=== PATIENT | male | born 1985 | race Caucasian/White ===

== ENCOUNTER 2025-07-22 09:49 | Outpatient (REF) | payer MEDICAID, SELFPAY ==
--- OUTSIDE RECORDS SUMMARY | 2025-07-22 09:15 | XMS_ITS | Encounter Summary ---
Author Organization [facility] Address [address] 7t [place] [address] Care Team Providers Care Medical Stenographer Name Role Phone Unavailable Primary Care Provider Unavailabl e Reason for Referral * Consultation (Routine) - Canceled Specialty Diagnoses / Procedures Referred By Contpipe t Referred To Contact Ophthalmology Diagnoses Elevated blood pressure reading Ros Schuster MD [address] [place] [phone] Phone: tel: fax: Referral ID Status Reason Start Date Expiration Date Visits Requested Visits Authorized [id number] Canceled Specialty Services Required 07/22/2025 07/22/2026 1 1 Reason for Visit * Reason Comments Establish Care Encounter Details Date Type Department Care Team (Late st Contact Info) Description 07/22/2025 9:15 AM EDT Office Visit [facility] MEDICINE [address] [place] [phone] Ros Schuster MD [address] [place] [phone] Elevated blood pressure reading (Primary Dx); Preventative health care Social History Tobacco Use Types Packs/Day Years Used Date Smoking Tobacco: Never Smokeless Tobacco: Never Tobacco Cessation:Counseling Given: Not Answered Alcohol Use Standard Drinks/Week Comments Never 0 (1 standard drink = 0.6 oz pur e alcohol) Depression Answer Date Recorded Patient Health Questionnaire-9 Score 0 07/22/2025 Patient Health Questionnaire-9 Score 0 07/22/2025 Last PHQ-9: Questionnaire Data Not on file 0 07/22/2025 Housing Stability Answer Date Recorded What is your housing situation today? I have sheldon danielson 07/22/[address] you li ve. Do you have problems with any of the following? None of the above 07/22/2025 Food Insecurity Answer Date Recorded Within the past 12 months, y ou worried that your food would run out before you got money to buy more: Never True 07/22/2025 Within the past 12 months,th e food you bought just didn't last and you didn't have enough money to get more: Never True Transportation Answer Date Recorded In the past 12 months, has l ack of transportation kept you from medical appts, meetings, work or from getting things needed for daily living? No 07/22/2025 Utilities Answer Date Recorded In the past 12 months, has t he electric, gas, oil or water company threatened to shut off services in your home? No 07/22/2025 Depression Answer Date Recorded Patient Health Questionnaire-2 Score 0 07/22/2025 Internet Access Answer Date Recorded Internet Access Q1 Yes 07/22/2025 Internet Access Q2 Not on file 07/22/2025 Comments Unknown Sex and Gender Information Value Date Recorded Sex Assigned at Unknown 07/21/2025 10:56 AM EDT Legal Sex Male 1:14 PM EST Gender Identity Choose not to disclose 10:56 AM EDT Sexual Orientation Don't know 07/21/2025 10 :56 AM EDT documented as of this encounter Last Filed Vital Signs Vital Sign Reading Time Taken Comments Blood Pressure 132/82 07/22/2025 9:15 AM EDT Pulse 72 07/22/2025 9:01 AM EDT Temperature 36.1 C (97 F) 07/22/2025 9:01 AM EDT Respiratory Rate 20 07/22/2025 9:01 AM EDT Oxygen Saturation - - Inhaled Oxygen Concentration - - Weight 85.2 kg (187 lb 12.8 oz) 07/22/2025 9:01 AM EDT Height 165.1 cm (5' 5 ) 07/22/2025 9:01 AM EDT Body Mass Index 31.25 07/22/2025 9:01 AM EDT documented in this encounter Functional Status * Over the past 2 weeks, how often have you been bothered by any of the following problems? Question Answer Date of Assessment Author Patient Health Questionnaire-2 Score 0 07/22/2025 9:03 AM Jamaica Agosto MA * Little interest or pleasure in doing things Answer Date of Assessment Author Not at all 07/22/2025 9:03 AM Jamaica Mitchell MA * Feeling down, depressed, or hopeless Answer Date of Assessment Author Not at all 07/22/2025 9:03 AM Jamaica Mitchell MA * Trouble falling or staying asleep, or sleeping too much Answer Date of Assessment Author Not at all 07/22/2025 9:03 AM Jamaica Mitchell MA * Feeling tired or having little energy Answer Date of Assessment Author Not at all 07/22/2025 9:03 AM Jamaica Mitchell MA * Poor appetite or overeating Answer Date of Assessment Author Not at all 07/22/2025 9:03 AM Jamaica Mitchell MA * Feeling bad about yourself - or that you are a failure or have let yourself or your family down Answer Date of Assessment Author Not at all 07/22/2025 9:03 AM Jamaica Mitchell MA * Trouble concentrating on things, such as reading the newspaper or watching television Answer Date of Assessment Author Not at all 07/22/2025 9:03 AM Jamaica Mitchell MA * Moving or speaking so slowly that other people could have noticed? Or the opposite - being so fidgety or restless that you have been moving around a lot more than usual. Answer Date of Assessment Author Not at all 07/22/2025 9:03 AM Jamaica Mitchell MA * Thoughts that you would be better off or hurting yourself in some way Answer Date of Assessment Author Not at all 07/22/2025 9:03 AM Jamaica Mitchell MA * Patient Health Questionnaire-9 Score Answer Date of Assessment Author 0 07/22/2025 9:03 AM Jamaica Mitchell MA * Over the last 2 weeks, how often have you been bothered by any of the following problems? Question Answer Date of Assessment Author Feeling nervous, anxious, or on edge 0 07/22/2025 9:04 AM EDT Jamaica Torres MA Not being able to stop or control worrying 0 07/22/2025 9:04 AM EDT Jamaica Torres MA Worrying too much about different things 0 07/22/2025 9:04 AM EDT Jamaica Torres MA Trouble relaxing 0 07/22/2025 9:04 AM EDT Jamaica Fagan MA Being so restless that it is hard to sit still 0 07/22/2025 9:04 AM EDT Jamaica Torres MA Becoming easily annoyed or irritable 0 07/22/2025 9:04 AM EDT Jamaica Torres MA Feeling afraid as if something awful might happen 0 07/22/2025 9:04 AM EDT Jamaica Ibrahim MA MIREYA-7 Total Score 0 07/22/2025 9:04 AM EDT Jamaica Torres MA documented as of this encounter Miscellaneous Notes * Assessment & Plan Note - Ros Schuster MD - 07/22/2025 9:48 AM EDT Associated Problem(s): Preventative health care Check immunization status, hep B and MMR. Check STI testing and cardiovascular risk due to family history of early CAD Will refer to eye clinic evaluation and I advised to make an appointment with his dentist FU in 4-6w * Assessment & Plan Note - Ros Schuster MD - 07/22/2025 9:46 AM EDT Associated Problem(s): Elevated blood pressure reading Repeated BP is normal. Counseled re low salt diet/increase moderate physical activity. Will check BP at home at next visit, if it continues to be elevated then we will order home BP check. Non smoking patient. documented in this encounter Plan of Treatment Upcoming Encounters Date Type Department Care Team (Late st Contact Info) Description 10/01/2025 11:15 AM EST Office Visit [facility] MEDICINE [address] [place] [address] Ros Schuster MD [address] [place], [place] [phone] Scheduled Orders Name Type Priority Associated Diagnoses Orde r Schedule Comprehensive Metabolic Panel Lab Routine Elevated blood pressure reading Expected: 07/22/2025 (Approximate), Expires: 07/22/2026 Lipid Panel with Reflex to Direct LDL Lab Routine Elevated blood pressure reading Expected: 07/22/2025 (Approximate), Expires: 07/22/2026 TSH with Reflex to Free T4 Lab Routine Elevated blood pressure reading Expected: 07/22/2025 (Approximate), Expires: 07/22/2026 T-SPOT .TB Lab Routine Preventative health care Expected: 07/22/2025 (Approximate), Expires: 07/22/2026 Hepatitis Panel, General Lab Routine Preventative health care Expected: 07/22/2025 (Approximate), Expires: 07/22/2026 HIV-1/2 Antigen and Antibodies, Fourth Generation, with Reflexes Lab Routine Preventative health care Expected: 07/22/2025 (Approximate), Expires: 07/22/2026 Measles, Mumps, and Rubella (MMR) Antibodies (IgG) Panel, Immune Status Lab Routine Preventative health care Expected: 07/22/2025 (Approximate), Expires: 07/22/2026 Scheduled Referrals Name Type Priority Associated Diagnoses Order Schedule Referral to Ophthalmology Outpatient Referral Routine Elevated blood pressure reading Expected: 07/22/2025 (Approximate), Expires: 07/22/2026 documented as of this encounter Procedures Procedure Name Priority Date/Time Associated Diagnosis Comments CBC WITH AUTO DIFFERENTIAL Routine 07/22/2025 10:14 AM EDT Elevated blood pressure reading documented in this encounter Results * CBC auto differential (07/22/2025 10:14 AM EDT) White Blood Count 5.7 4.8 - 10.8 X10*3/uL [facility] Red Blood Count 5.28 4.60 - 5.80 X10*6/uL [facility] Hemoglobin 14.9 14.0 - 18.0 g/dl [facility] Hematocrit 44.6 42.0 - 52.0 % [facility] Mean Corpuscular Volume 84.5 80.0 - 98.0 fL [facility] Mean Corpuscular Hemoglobin 28.2 27.0 - 33.0 pg [facility] Mean Corpuscular HGB Conc 33.4 31.0 - 36.0 g/dl [facility] Red Cell Distribution Width 12.8 11.0 - 16.0 % [facility] Platelet Count 238 160 - 400 X10*3/uL [facility] Mean Platelet Volume 11.7 9.4 - 12.4 fL [facility] Neutrophils Percent Auto 60.5 45 - 73 % [facility] Imm Gran Pct Auto 0.3 0.0 - 0.4 % [facility] Lymphocytes Percent Auto 29.7 20 - 40 % [facility] Monocytes Percent Auto 7.0 2 - 11 % [facility] Eosinophils Percent Auto 1.6 0 - 4 % [facility] Basophils Percent Auto 0.9 0 - 2 % [facility] NRBC Pct Auto 0.0 0.0 - 0.2 /100WBC [facility] Neutrophils Absolute Auto 3.5 2.0 - 8.3 x10*3/uL [facility] Imm Gran Abs Auto 0.02 0.00 - 0.03 X10*3/uL [facility] Lymphocytes Absolute Auto 1.7 1.2 - 4.9 X10*3/uL [facility] Monocytes Absolute Auto 0.4 0.1 - 1.2 X10*3/uL [facility] Eosinophils Absolute Auto 0.1 0.0 - 0.4 X10*3/uL [facility] Basophils Absolute Auto 0.1 0.0 - 0.2 X10*3/uL [facility] NRBC Abs Auto 0.000 0.0 - 0.012 X10*3/uL [facility] Blood Venous blood specimen / Unknown 07/22/2025 10:14 AM EDT 07/22/2025 11:26 AM EDT us Ros Schuster MD LAB BLOOD ORDERABLES Fin al Result [facility] [address] [place] [phone] documented in this encounter Visit Diagnoses Diagnosis Elevated blood pressure reading- Primary Elevated blood pressure reading without diagnosis of hypertension Preventative health care Routine general medical examination at a health care facility documented in this encounter Additional Health Concerns Assessment Noted Time PHQ-9 Depression Total Score: 0 07/22/20 25 9:03 AM EDT documented as of this encounter
[2025-07-22 11:35] LABS: MANUAL DIFF FLAG NO
[2025-07-22 11:40] LABS: Hematocrit 44.6 % (42.0-52.0); Hemoglobin 14.9 g/dl (14.0-18.0); Imm Gran Abs Auto 0.02 X10*3/uL (0.00-0.03); Imm Gran Pct Auto 0.3 % (0.0-0.4); Lymphocytes Absolute Auto 1.7 X10*3/uL (1.2-4.9); Mean Corpuscular HGB Conc 33.4 g/dl (31.0-36.0); Mean Corpuscular Hemoglobin 28.2 pg (27.0-33.0); Mean Corpuscular Volume 84.5 fL (80.0-98.0); NRBC Abs Auto 0.000 X10*3/uL (0.0-0.012); NRBC Pct Auto 0.0 /100WBC (0.0-0.2); Platelet Count 238 X10*3/uL (160-400); Red Blood Count 5.28 X10*6/uL (4.60-5.80); White Blood Count 5.7 X10*3/uL (4.8-10.8)
--- OUTSIDE RECORDS SUMMARY | 2025-07-22 11:52 | XMS_ITS | Clinical Summary ---
Author Organization [employer] Address [address] 7t [place] [address] Care Team Providers Care Emergency Crew Supervisor Name Role Phone Unavailable Primary Care Provider Unavailabl e Allergies No known active allergies Active Problems Problem Noted Date Diagnosed Date Elevated blood pressure reading 07/22/2025 Assessment & Plan (07/22/2025 9:46 AM EDT): Repeated BP is normal. Counseled re low salt diet/increase moderate physical activity. Will check BP at home at next visit, if it continues to be elevated then we will order home BP check. Non smoking patient. Preventative health care 07/22/2025 Assessment & Plan (07/22/2025 9:49 AM EDT): Check immunization status, hep B and MMR. Check STI testing and cardiovascular risk due to family history of early CAD Will refer to eye clinic evaluation and I advised to make an appointment with his dentist FU in 4-6w Encounters Date Type Department Care Team Description 07/22/2025 9:15 AM EDT Office Visit [facility] MEDICINE [address] [place] [phone] Ros Schuster MD Elevated blood pressure reading (Primary Dx); Preventative health care 07/22/2025 Travel 07/18/[address] [address] Ros Schuster MD Chart prep 07/16/2025 Travel 07/14/2025 Patient Outreach [address] [phone] Ros Schuster MD Pre-visit Planning ((Unable to reach for PVP screening and or LVM) to be completed in office) 04/28/[address] [phone] Rahul José MD from Last 3 Months Social History Tobacco Use Types Packs/Day Years [...] Don't know 07/21/2025 10 :56 AM EDT Last Filed Vital Signs Vital Sign Reading [...] Mass Index 31.25 07/22/2025 9:01 AM EDT Plan of Treatment Upcoming Encounters Date Type Department Care Team (Late st Contact Info) Description 10/01/2025 11:15 AM EST Office Visit [facility] MEDICINE [address] [place] [address] Ros Schuster MD [address] [place], [place] [phone] Health Maintenance Due Date Last Done Comments HIV Screening 1983 Lipid Panel 1983 Family Planning (PISQ) 1998 HPV Vaccines (1 - 3-dose series) 1998 Hepatitis C Screening 2001 DTaP/Tdap/Td Vaccines (1 - Tdap) 2002 Hepatitis B Vaccines (1 of 3 - 19+ 3-dose series) 2002 COVID-19 Vaccine ( - 2023-2 5 season) 2025 Influenza Vaccine (#1) 2025 Alcohol/Substance Use Screening 07/22/2026 07/22/2025 Depression Screening 07/22/2026 07/22/2025, 07/22/2025 Disability Screening 07/22/2026 07/22/2025 SDOH Screening 07/22/2026 07/22/2025 Tobacco Screening 07/22/2026 07/22/2025 Zoster Vaccines (1 of 2) 2033 RSV Patients and Patients Aged 60 years or older (1 - 1-dose 75+ series) 2058 HIB Vaccines Aged Out No longer eligi ble based on patient's age to complete this topic Hepatitis A Vaccines Aged Out No long er eligible based on patient's age to complete this topic IPV Vaccines Aged Out No longer eligi ble based on patient's age to complete this topic Meningococcal B Vaccine Aged Out No l onger eligible based on patient's age to complete this topic Meningococcal Vaccine Aged Out No nicholas roselia eligible based on patient's age to complete this topic Pneumococcal Vaccine: Pediatrics (0 to 5 Years) and At-Risk Patients (6 to 49) Years Aged Out No longer eligible b ased on patient's age to complete this topic RSV under 20 months Aged Out No longe r eligible based on patient's age to complete this topic Rotavirus Vaccines Aged Out No longer eligible based on patient's age to complete this topic Procedures Procedure Name Priority Date/Time Associated Diagnosis Comments CBC WITH AUTO DIFFERENTIAL Routine 07/22/2025 10:14 AM EDT Elevated blood pressure reading from Last 3 Months Results * CBC auto differential (07/22/2025 10:14 AM EDT) White Blood Count 5.7 4.8 - 10.8 X10*3/uL [facility] Red Blood Count 5.28 4.60 - 5.80 X10*6/uL [facility] Hemoglobin 14.9 14.0 - 18.0 g/dl [facility] Hematocrit 44.6 42.0 - 52.0 % [facility] Mean Corpuscular Volume 84.5 80.0 - 98.0 fL [facility] Mean Corpuscular Hemoglobin 28.2 27.0 - 33.0 pg [facility] Mean Corpuscular HGB Conc 33.4 31.0 - 36.0 g/dl [facility] Red Cell Distribution Width 12.8 11.0 - 16.0 % [facility] Platelet Count 238 160 - 400 X10*3/uL [facility] Mean Platelet Volume 11.7 9.4 - 12.4 fL [facility] Neutrophils Percent Auto 60.5 45 - 73 % [facility] Imm Gran Pct Auto 0.3 0.0 - 0.4 % [facility] Lymphocytes Percent Auto 29.7 20 - 40 % [facility] Monocytes Percent Auto 7.0 2 - 11 % [facility] Eosinophils Percent Auto 1.6 0 - 4 % [facility] Basophils Percent Auto 0.9 0 - 2 % [facility] NRBC Pct Auto 0.0 0.0 - 0.2 /100WBC [facility] Neutrophils Absolute Auto 3.5 2.0 - 8.3 x10*3/uL [facility] Imm Gran Abs Auto 0.02 0.00 - 0.03 X10*3/uL [facility] Lymphocytes Absolute Auto 1.7 1.2 - 4.9 X10*3/uL [facility] Monocytes Absolute Auto 0.4 0.1 - 1.2 X10*3/uL [facility] Eosinophils Absolute Auto 0.1 0.0 - 0.4 X10*3/uL [facility] Basophils Absolute Auto 0.1 0.0 - 0.2 X10*3/uL [facility] NRBC Abs Auto 0.000 0.0 - 0.012 X10*3/uL [facility] Blood Venous blood specimen / Unknown 07/22/2025 10:14 AM EDT 07/22/2025 11:26 AM EDT us Ros Schuster MD LAB BLOOD ORDERABLES Fin al Result [facility] [address] [place] [address] [phone] from Last 3 Months Insurance [facility] [employer]SN FULL
--- OUTSIDE RECORDS SUMMARY | 2025-07-22 11:52 | XMS_ITS | Encounter Summary ---
Author Organization [employer] Address [address] [place] [address] Care Team Providers Care Filing And Polishing Supervisor Name Role Phone Unavailable Primary Care Provider Unavailabl e Encounter Details Date Type Department Care Team (Latest Contact Info) Description 07/22/2025 Travel Social History Tobacco Use Types Packs/Day Years Used Date Smoking Tobacco: Never Smokeless Tobacco: Never Alcohol Use Standard Drinks/Week Comments Never 0 [...] AM EDT documented as of this encounter Functional Status * Over the past 2 weeks, how often have you been bothered by any of the following problems? Question Answer Date of Assessment Author Patient Health Questionnaire-2 Score 0 07/22/2025 9:03 AM EDT Jamaica Torres MA * Little interest or pleasure in doing things Answer Date of Assessment Author Not at all 07/22/2025 9:03 AM EDT Jamaica Key MA * Feeling down, depressed, or hopeless [...] Author Not at all 07/22/2025 9:03 AM EDT Jamaica Key MA * Patient Health Questionnaire-9 Score Answer Date of Assessment Author 0 07/22/2025 9:03 AM EDT Jamaica Key MA * Over the last 2 weeks, [...] Torres MA documented as of this encounter Plan of Treatment Upcoming Encounters Date Type Department Care Team (Late st Contact Info) Description 10/01/2025 11:15 AM EST Office Visit [facility] MEDICINE [address] [place] [address] Ros Schuster MD [address] [place] [address] documented as of this encounter Visit Diagnoses Not on filedocumented in this encounter Additional Health Concerns Assessment Noted Time PHQ-9 Depression Total Score: 0 07/22/20 25 9:03 AM EDT documented as of this encounter
--- OUTSIDE RECORDS SUMMARY | 2025-07-22 11:52 | XMS_ITS | Encounter Summary ---
Author Organization [facility] Address [address] 7t [place] [address] Care Team Providers Care Air Intercept Controller Supervisor Name Role Phone Unavailable Primary Care Provider Unavailabl e Reason for Visit * Reason Onset Date Comments Chart prep 07/18/2025 Encounter Details Date Type Department Care Team (Late st Contact Info) Description 07/18/2025 Telephone [facility] MEDICINE [address] [place] [address] [phone] Ros Schuster MD [address] [place], [place] [phone] Chart prep Social History Tobacco Use Types Packs/Day Years Used Date Smoking Tobacco: Never Assessed Comments Unknown Sex and Gender Information Value Date Recorded Sex Assigned at Unknown 07/21/2025 10:56 AM EDT Legal Sex Male 1:14 PM EST Gender Identity Choose not to disclose 10:56 AM EDT Sexual Orientation Don't know 07/21/2025 10 :56 AM EDT documented as of this encounter Miscellaneous Notes * Telephone Encounter - Nyasia Tate MA - 07/18/2025 3:42 PM EDT Chart Prep Labs: not applicable Images: not applicable Referrals: not applicable Vaccines due: Covid, Flu, Tdap, Hep B, and HPV Screenings: STI screening Overdue care gaps: SBIRT, SDOH, PHQ-9, Disability screen, and Tobacco documented in this encounter Plan of Treatment Upcoming Encounters Date Type Department Care Team (Late st Contact Info) Description 10/01/2025 11:15 AM EST Office Visit [facility] MEDICINE [address] [place] [address] [phone] Ros Schuster MD [address] [place] [address], [place] [address] documented as of this encounter Visit Diagnoses Not on filedocumented in this encounter
[2025-07-22 13:26] LABS: Anion Gap 10 (12-20)
[2025-07-22 13:30] LABS: Alanine Aminotransferase 14 U/L (0-40); Albumin Level 4.6 g/dL (3.5-5.0); Alkaline Phosphatase 69 U/L (39-117); Aspartate Amino Transferase 25 U/L (5-37); Blood Urea Nitrogen 18 mg/dL (9-16); Calcium 9.4 mg/dL (8.4-10.2); Carbon Dioxide 29 mmol/L (22-29); Chloride 109 mmol/L (96-108); Cholesterol 129 mg/dL (<200); Estimated Glomerular Filt Rate > 60; HDL Cholesterol 34 mg/dL (>40); Potassium 4.1 mmol/L (3.3-5.1); Sodium 144 mmol/L (135-145); Total Protein 7.6 g/dL (6.5-8.0); Triglycerides 104 mg/dL (<150)
[2025-07-22 14:10] LABS: HBS Num1 2.38 mIU/mL (0-7.99); HBc Num1 0.07 S/CO (0.00-0.79); HBsAGNum1 0.41 S/CO (0.00-0.99); HIV Num 1 0.05 S/CO (0.00-0.99); Hepatitis A Antibody IgM 0.22 Index (0-0.79); Hepatitis B Surface Antigen Negative (Negative); ~HepC Num1 0.07 S/CO (0.00-0.79); ~Hepatitis A Antibody IgM Nonreactive (Nonreactive); ~Hepatitis B Surface Antibody NONREACTIVE (Nonreactive); ~Hepatitis C Antibody Nonreactive (Nonreactive)
[2025-07-22 14:24] LABS: Reflex LDLD? No
[2025-07-23 09:34] LABS: Rubeola IgG (Measles) 297.00 AU/mL
[2025-07-25 05:43] LABS: TS Negative Control Passed; TS Panel A 24; TS Panel B 30; TS Positive Control Passed; TSpotTB Positive (Negative)
== END 2025-07-22 09:50 | disposition home or self-care (01) ==
LOC: HO.HHCL 09:49
PROVIDERS: PCP Internal Medicine; Visit Provider Internal Medicine
DX: Z00.00 Encounter for general adult medical examination without abnormal findings (principal); R03.0 Elevated blood-pressure reading, without diagnosis of hypertension; Z11.59 Encounter for screening for other viral diseases; Z11.4 Encounter for screening for human immunodeficiency virus [HIV]
CPT/HCPCS: 36415; 80053; 80061; 84443; 85025; 86481; 86704; 86706; 86709; 86735; 86762; 86765; 86803; 87340; 87389

== ENCOUNTER 2025-10-01 13:26 | Outpatient (REF) | payer MEDICAID, SELFPAY ==
--- NOTE | ~2025-10-01 | XR_ITS ---
EXAMINATION: XR CHEST CLINICAL INFORMATION: TB COMPARISON: None available. TECHNIQUE: 2 views of the chest were obtained. FINDINGS: No significant abnormality is noted involving the heart, lungs, mediastinum, bony thorax or soft tissues. XR/XR chest 2V IMPRESSION: No acute disease, no sequela of chronic granulomatous disease. Electronically signed by: He Roche MD 10/01/2025 02:29 PM EST
--- OUTSIDE RECORDS SUMMARY | 2025-10-01 11:15 | XMS_ITS | Encounter Summary ---
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 0 10/01/2025 Depression Answer Date Recorded Patient Health Questionnaire-9 Score 0 07/22/2025 Patient Health Questionnaire-9 Score 0 07/22/2025 Last PHQ-9: Questionnaire Data Not on file 0 07/22/2025 Housing Stability Answer Date Recorded What is your housing situation today? I have sheldon jagjit 07/22/[address] you li [...] Sign Reading Time Taken Comments Blood Pressure 140/82 10/01/2025 11:29 AM EST Pulse 80 10/01/2025 11:29 AM EST Temperature 36.1 C (97 F) 10/01/2025 11:29 AM EST Respiratory Rate 16 10/01/2025 11:29 AM EST Oxygen Saturation 99% 10/01/2025 11:29 AM EST Inhaled Oxygen Concentration - - Weight 83 kg (183 lb) 10/01/2025 11:29 AM EST Height 160 cm (5' 3 ) 10/01/2025 11:29 AM EST Body Mass Index 32.42 10/01/2025 11:29 AM EST documented in this encounter Plan of Treatment Not on file documented as of this encounter Visit Diagnoses Diagnosis Positive QuantiFERON-TB Gold test- Primary Elevated blood pressure reading Elevated blood pressure reading without diagnosis of hypertension Encounter for immunization documented in this encounter Additional Health Concerns Assessment Noted Time PHQ-9 Depression Total Score: 0 07/22/20 9:03 AM EDT documented as of this encounter Care Teams Imcu Specialist Relationship Specialty Start Date End Date Ros Schuster MD [address] [place] [phone] PCP - General Internal Medicine 10/01/25 documented as of this encounter
--- OUTSIDE RECORDS SUMMARY | 2025-10-01 16:00 | XMS_ITS | Encounter Summary ---
Author Organization [employer] Address [address] [place] [address] Care Team Providers Care Tightener Name Role Phone Ros Schuster MD Primary Care Provider + Encounter Details Date Type Department Care Team (Latest Contact Info) Description 10/01/2025 Travel Social History Tobacco Use Types Packs/Day [...] is your housing situation today? I have sheldonjulio danielson 07/22/[address] you [...] AM EDT documented as of this encounter Plan of Treatment Not on file documented as of this encounter Visit Diagnoses Not on filedocumented in this encounter Additional Health Concerns Assessment Noted Time PHQ-9 Depression Total Score: 0 07/22/20 9:03 AM EDT documented as of this encounter Care Teams Tightener Relationship Specialty Start Date End Date Ros Schuster MD [address] [place] [phone] PCP - General Internal Medicine 10/01/25 documented as of this encounter
--- OUTSIDE RECORDS SUMMARY | 2025-10-01 16:00 | XMS_ITS | Encounter Summary ---
Author Organization [employer] Address [address] [place] [address] Care Team Providers Care Business Integration Analyst Name Role Phone Unavailable Primary Care Provider Unavailabl e Encounter Details Date Type Department Care Team (Latest Contact Info) Description 09/28/2025 Travel Social History Tobacco Use Types Packs/Day [...]
--- OUTSIDE RECORDS SUMMARY | 2025-10-01 16:00 | XMS_ITS | Clinical Summary ---
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 Elevated blood pressure reading 07/22/2025 Assessment & [...] Encounters Date Type Department Care Team Description 10/01/2025 11:15 AM EST Office Visit [facility] [address] [place] [phone] Ros Schuster MD 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); Elevated blood pressure reading; Encounter for immunization 10/01/2025 Travel 09/28/2025 Travel 09/17/2025 Patient Outreach [facility] [address] [place] [address] Ros Schuster MD Pre-visit Planning (SDOH screening completed on 07/22/2025) 07/31/2025 Telephone [facility] [address] [place] [address] Ros Schuster MD results 07/28/2025 Results Follow-Up [facility] [address] [place] [phone] Ros Schuster MD CBC auto differential, Comprehensive Metabolic Panel, Lipid Panel with Reflex to Direct LDL, Additional followed-up results: 5 07/22/2025 9:15 AM EDT Office Visit [address] [address] Ros Schuster MD Elevated blood pressure reading (Primary Dx); Preventative health care 07/22/2025 Travel 07/18/[address] [address] Ros Schuster MD Chart prep 07/16/2025 Travel 07/14/2025 Patient Outreach [address] [phone] Ros Schuster MD Pre-visit Planning ((Unable to reach for PVP screening and or LVM) to be completed in office) from Last 3 Months Immunizations Immunization Administration Dates Next Due Hep B, adult 09/04/2024 HepB-CpG 10/01/2025 IPV 09/04/2024 Influenza, seasonal, injectable, preservative fr ee 10/01/2025 MMR 09/04/2024 SARS-CoV-2, Unspecified 02/17/2021,01/17/2021 TD (adult), 2 Lf tetanus tox oid, preservative free, adsorbed 08/27/2024,07/12/2018 Varicella 09/04/2024 Social History Tobacco Use Types Packs/Day Years [...] Mass Index 32.42 10/01/2025 11:29 AM EST Plan of Treatment Health Maintenance Due Date Last Done Comments Family Planning (PISQ) 1998 HPV Vaccines (1 - 3-dose series) 1998 DTaP/Tdap/Td Vaccines (1 - Tdap) 08/28/2024 08/27/2024, 07/12/2018 IPV Vaccines (2 of 3 - Adult catch-up series) 10/02/2024 09/04/2024 COVID-19 Vaccine (3 - 2024-2 6 season) 2025 02/17/2021, 01/17/2021 Hepatitis B Vaccines (3 of 3 - 19+ 3-dose series) 11/26/2025 10/01/2025, 09/04/2024 Alcohol/Substance Use Screening 07/22/2026 07/22/2025 Depression Screening 07/22/2026 07/22/2025, 07/22/2025 Disability Screening 07/22/2026 07/22/2025 SDOH Screening 07/22/2026 07/22/2025 Tobacco Screening 10/01/2026 10/01/2025 Lipid Panel 07/22/2030 07/22/2025 Zoster Vaccines (1 of 2) 2033 RSV Patients and Patients Aged 60 years or older (1 - 1-dose 75+ series) 2058 HIV Screening Completed 07/22/2025 Hepatitis C Screening Completed 07/22/2025 Influenza Vaccine Completed 10/01/2025 HIB Vaccines Aged Out No longer eligi [...] Procedure Name Priority Date/Time Associated Diagnosis Comments XR CHEST 2 VIEWS Routine 10/01/2025 2:19 PM EST Positive TB test MEASLES, MUMPS, AND RUBELLA (MMR) AB (IGG) PANEL, IMMUNE STATUS Routine 07/22/2025 10:14 AM EDT Preventative health care HIV 1/2 ANTIGEN/ANTIBODY, FOURTH GENERATION W/RFL Routine 07/22/2025 10:14 AM EDT Preventative health care HEPATITIS PANEL, GENERAL Routine 07/22/2025 10:14 AM EDT Preventative health care T-SPOT(R).TB Routine 07/22/2025 10:14 AM EDT Preventative health care TSH W/REFLEX TO FT4 Routine 07/22/2025 1 0:14 AM EDT Elevated blood pressure reading LIPID PANEL WITH REFLEX TO DIRECT LDL Routine 07/22/2025 10:14 AM EDT Elevated blood pressure reading COMPREHENSIVE METABOLIC PANEL Routine 07/22/2025 10:14 AM EDT Elevated blood pressure reading CBC WITH AUTO DIFFERENTIAL Routine 07/22/2025 10:14 AM EDT Elevated blood pressure reading from Last 3 Months Results * XR Chest 2 Views (10/01/2025 2:19 PM EST) Anatomical Region Laterality Modality Chest Radiographic Carla ging 10/01/2025 2:19 PM EST Narrative 10/01/2025 2:31 PM EST [address] [address] XRay Report Signed Patient: Gerber Killian MR#: [id number] : 1985 Acct:[id number] Age/Sex: 40 / M ADM Date: 10/01/25 Loc: HO.HHCX Attending Dr: Ros Schuster MD Ordering Physician: Ros Schuster MD Date of Service: 10/01/25 Procedure(s): XR chest 2V Accession Number(s): [id number] cc: Ros Schuster MD Reason for Exam: TB EXAMINATION: XR CHEST CLINICAL INFORMATION: TB COMPARISON: None available. TECHNIQUE: 2 views of the chest were obtained. FINDINGS: No significant abnormality is noted involving the heart, lungs, mediastinum, bony thorax or soft tissues. XR/XR chest 2V IMPRESSION: No acute disease, no sequela of chronic granulomatous disease. Electronically signed by: He Roche MD 10/01/2025 02:29 PM EST RP Dictated By: He Roche MD Signed By: <Electronically signed by He Roche MD in OV> 10/01/25 1429 DD/ 141 TD/TT: 10/01/25 142 Medical Assisting Instructor: Procedure Note Donotuseinterpreter, Image - 10/01/2025 [place] [address] XRay Report Signed Patient: Roel Killian#: [id number] : 1985Acct:[id number] Age/Sex: 40 / MADM Date: 10/01/25 Loc: HO.HHCX Attending Dr: Ros Schuster MD Ordering Physician: Ros Schuster MD Date of Service: 10/01/25 Procedure(s): XR chest 2V Accession Number(s): [id number] cc: Ros Schuster MD Reason for Exam: TB EXAMINATION: XR CHEST CLINICAL INFORMATION: TB COMPARISON: None available. TECHNIQUE: 2 views of the chest were obtained. FINDINGS: No significant abnormality is noted involving the heart, lungs, mediastinum, bony thorax or soft tissues. XR/XR chest 2V IMPRESSION: No acute disease, no sequela of chronic granulomatous disease. Electronically signed by: He Roche MD 10/01/2025 02:29 PM EST RP Dictated By: He oRche MD Signed By: <Electronically signed by He Roche MD in OV> 10/01/25 1429 DD/ 1419 TD/TT: 10/01/25 1421 Medical Assisting Instructor: us Ros Schuster MD IMG XR PROCEDURES Final Result * (ABNORMAL) T-SPOT??.TB (07/22/2025 10:14 AM EDT) T Spot TB Positive( A) Negative [facility] Comment: Diagnosing or excluding tuberculosis (TB) disease andassessing the probability of latent TB infection (LTBI)requires a combination of epidemiological, historical,medical and diagnostic findings that should be takeninto consideration when interpreting T-SPOT.TB testresults. A positive test result does not rule in activeTB disease caused by Mycobacterium tuberculosis(M. tuberculosis); active TB disease should beconfirmed by other tests such as sputum smear andculture, PCR, and chest radiography.Uncommonly, a positive T-SPOT.TB result may be due toinfection with other Mycobacterium species includingM. kansasii, M. szulgai, M. gordonae, or M. marinum.Alternative tests would be required if these infectionsare suspected.The T-SPOT.TB test is qualitative and results arereported as positive, borderline, or negative, giventhat the test controls perform as expected. In linewith the Centers for Disease Control and Prevention's2010 recommendation to report quantitative measurementsalongside the qualitative result, the laboratoryprovides spot counts for informational purposes only.The T-SPOT.TB test should not be interpreted as aquantitative test. TS PANEL A 24 [facility] TS PANEL B 30 [facility] Negative Control Passed [facility] Positive Control Passed [facility] Comment:For additional infor matuzma, please refer [email or web address]/faq/[email or web address](This link is being provided for informational/educational purposes only.)THIS TEST WAS PERFORMED AT:[employer] [id number] [place] [id number] STORM MD,PHD 07/22/2025 10:1 4 AM EDT 07/22/2025 11:26 AM EDT us Ros Schuster MD LAB BLOOD ORDERABLES Fin al Result Performing Organization Address City/[facility]/ZIP Co de Phone Number [facility] [address] [place] [phone] * TSH with Reflex to Free T4 (07/22/2025 10:14 AM EDT) TSH reflex Free T4 1.28 0.32 - 4.0 uIU/mL [facility] Blood 07/22/2025 10:1 4 AM EDT 07/22/2025 11:23 AM EDT Ros Schuster MD LAB BLOOD ORDERABLES Fin al Result Performing Organization Address [facility] Co de Phone Number [facility] [address] [place] [phone] * Measles, Mumps, and Rubella (MMR) Antibodies??(IgG) Panel, Immune Status (07/22/2025 10:14 AM EDT) Mumps Virus IgG Antibody 151.00 AU/mL [facility] Comment:AU/mL Interpretation ------- <9.00 Not consistent with immunity9.00-10.99 Equivocal>10.99 Consistent with immunityThe presence of mumps IgG antibody suggests immunizationor past or current infection with mumps virus. Rubella IgG Antibody 9.91 Index [facility] Comment:Index Interpretatio n ----- <0.90 Not consistent with immunity 0.90-0.99 Equivocal > or = 1.00 Consistent with immunityThe presence of rubella IgG antibody suggestsimmunization or past or current infection withrubella virus.THIS TEST WAS PERFORMED AT:[employer] [place] [id number] VANG MD Rubeola IgG (Measles) 297.00 AU/mL [facility] Comment:AU/mL Interpretation ----- <13.50 Not consistent with zakkckkx52.50-16.49 Equivocal>16.49 Consistent with immunityThe presence of measles IgG suggests immunization orpast or current infection with measles virus.For additional information, please refer [email or web address] [email or web address]/faq/[email or web address](This link is being provided for informational/educational purposes only.) Blood 07/22/2025 10:1 4 AM EDT 07/22/2025 11:23 AM EDT us Ros Schuster MD LAB BLOOD ORDERABLES Fin al Result [facility] [address] [place] [phone] * (ABNORMAL) Lipid Panel with Reflex to Direct LDL (07/22/2025 10:14 AM EDT) Triglycerides 104 <150 mg/dL [facility] Comment:Desirable Triglyceri de: less than 150 mg/dLBorderline High Triglyceride 150-199 mg/dLHigh Triglyceride: 200-499 mg/dLVery High Triglyceride: greater than or equal to 5OO mg/dL Cholesterol 129 <200 mg/dL [facility] Comment:Desirable Cholestero l: less than 200 mg/dLBorderline High Cholesterol: 200-239 mg/dLHigh Cholesterol: greater than 239 mg/dL LDL Cholesterol Calculated 75 <100 mg/dL [facility] Comment:Desirable LDL: less than 100 mg/dLNear Optimal/Above Optimal LDL: 110- 129 mg/dLBorderline High LDL: 130-159 mg/dLHigh LDL: 160-189 mg/dLVery High LDL: greater than or equal to 190 mg/dL HDL Cholesterol 34(L) >40 mg/dL [facility] Comment:Desirable HDL: great er than 40 mg/dL Note: This HDL assay may give artificially low results in patients with liver disease. Blood 07/22/2025 10:1 4 AM EDT 07/22/2025 11:23 AM EDT Ros Schuster MD LAB BLOOD ORDERABLES Fin al Result Performing Organization Address [facility] de Phone Number [facility] [address] [place] [phone] * Hepatitis Panel, General (07/22/2025 10:14 AM EDT) Pathologist [facility] Hepatitis A IgM Nonreactive Nonreactive [facility] Comment:IgM antibodies to MERCEDES V not detected; does not exclude earlyacute or recovered HAV infection. ~Hepatitis B Surface Antibody NONREACTIVE Nonreactive [facility] Comment:Nonreactive: < 8.00 mIU/mL Hepatitis B Core Antibody Nonreactive Nonreactive [facility] Hepatitis C Antibody Nonreactive Nonreactive [facility] Comment:Antibodies to HCV no t detected; does not exclude early acuteHCV infection. Hepatitis B Surface Ag Negative Negative [facility] Blood 07/22/2025 10:1 4 AM EDT 07/22/2025 11:23 AM EDT Ros Schuster MD LAB BLOOD ORDERABLES Fin al Result Performing Organization Address [facility] de Phone Number [facility] [address] [place] [phone] * CBC auto differential (07/22/2025 10:14 AM EDT) Pathologist [facility] White Blood Count 5.7 4.8 - 10.8 X10*3/uL [facility] Red Blood Count 5.28 4.60 - 5.80 X10*6/uL [facility] Hemoglobin 14.9 14.0 - 18.0 g/dl [facility] Hematocrit 44.6 42.0 - 52.0 % [facility] Mean Corpuscular Volume 84.5 80.0 - 98.0 fL [facility] Mean Corpuscular Hemoglobin 28.2 27.0 - 33.0 pg [facility] Mean Corpuscular HGB Conc 33.4 31.0 - 36.0 g/dl [facility] Red Cell Distribution Width 12.8 11.0 - 16.0 % [facility] Platelet Count 238 160 - 400 X10*3/uL [facility] Mean Platelet Volume 11.7 9.4 - 12.4 fL [facility] Neutrophils Percent Auto 60.5 45 - 73 % [facility] Imm Gran Pct Auto 0.3 0.0 - 0.4 % [facility] Lymphocytes Percent Auto 29.7 20 - 40 % [facility] Monocytes Percent Auto 7.0 2 - 11 % [facility] Eosinophils Percent Auto 1.6 0 - 4 % [facility] Basophils Percent Auto 0.9 0 - 2 % [facility] NRBC Pct Auto 0.0 0.0 - 0.2 /100WBC [facility] Neutrophils Absolute Auto 3.5 2.0 - 8.3 x10*3/uL [facility] Imm Gran Abs Auto 0.02 0.00 - 0.03 X10*3/uL [facility] Lymphocytes Absolute Auto 1.7 1.2 - 4.9 X10*3/uL [facility] Monocytes Absolute Auto 0.4 0.1 - 1.2 X10*3/uL [facility] Eosinophils Absolute Auto 0.1 0.0 - 0.4 X10*3/uL [facility] Basophils Absolute Auto 0.1 0.0 - 0.2 X10*3/uL [facility] NRBC Abs Auto 0.000 0.0 - 0.012 X10*3/uL [facility] Blood Venous blood specimen / Unknown 07/22/2025 10:14 AM EDT 07/22/2025 11:26 AM EDT us Ros Schuster MD LAB BLOOD ORDERABLES Fin al Result [facility] [address] [place] [phone] * HIV-1/2 Antigen and Antibodies, Fourth Generation, with Reflexes (07/22/2025 10:14 AM EDT) HIV AB/AG Nonreactive Nonreactive [facility] Comment:HIV-1 p24 Ag and/or HIV-1/HIV-2 Ab not detected.A test result that is nonreactive does not exclude thepossibility of exposure to or infection with HIV-1 and/orHIV-2. Nonreactive results in this assay for individualswith prior exposure to HIV-1 and/or HIV-2 may be due toantigen and antibody levels that are below the limit ofdetection of this assay.The [employer]ac[employer] HIV Ag/Ab Combo assay result andsupplemental assay results should be interpreted inconjunction with the patient's clinical presentation,history and other laboratory results. If the results areinconsistent with clinical evidence, additional testing issuggested to confirm the result. Blood Venous blood specimen / Unknown 07/22/2025 10:14 AM EDT 07/22/2025 11:23 AM EDT us Ros Schuster MD LAB BLOOD ORDERABLES Fin al Result [facility] [address] [place] [phone] * (ABNORMAL) Comprehensive Metabolic Panel (07/22/2025 10:14 AM EDT) Sodium 144 135 - 145 mmol/L [facility] Potassium 4.1 3.3 - 5.1 mmol/L [facility] Chloride 109(H) 96 - 108 mmol/L [facility] Carbon Dioxide 29 22 - 29 mmol/L [facility] Anion Gap 10(L) 12 - 20 [facility] Urea Nitrogen (BUN) 18(H) 9 - 16 mg/dL [facility] Creatinine, Serum 1.05 0.5 - 1.4 mg/dL [facility] Estimated Glomerular Filt Rate >60 [facility] Comment:Chronic Kidney Disea se: Estimated GFR < 60 mL/min/1.22w0Wyrjlv Kidney Disease: Estimated GFR < 15 mL/min/1.73m2 Glucose 100 60 - 115 mg/dL [facility] Calcium 9.4 8.4 - 10.2 mg/dL [facility] Bilirubin, Total 0.4 0.0 - 1.0 mg/dL [facility] Aspartate Amino Transferase 25 5 - 37 U/L [facility] Alanine Aminotransferase 14 0 - 40 U/L [facility] Total Protein 7.6 6.5 - 8.0 g/dL [facility] Albumin Level 4.6 3.5 - 5.0 g/dL [facility] Alkaline Phosphatase 69 39 - 117 U/L [facility] Blood Venous blood specimen / Unknown 07/22/2025 10:14 AM EDT 07/22/2025 11:23 AM EDT us Ros Schuster MD LAB BLOOD ORDERABLES Fin al Result Performing Organization Address City/State/[facility] Co de Phone Number [facility] [address] [place] [phone] from Last 3 Months Insurance [facility] Care Teams Special Education Inclusion Teacher Relationship Specialty Start Date End Date Ros Schuster MD [address] [place] [phone] PCP - General Internal Medicine 10/01/25
== END 2025-10-01 13:27 | disposition home or self-care (01) ==
LOC: HO.HHCX 13:26
PROVIDERS: PCP Internal Medicine; Visit Provider Internal Medicine
DX: R76.11 Nonspecific reaction to tuberculin skin test without active tuberculosis (principal)
CPT/HCPCS: 71046

== ENCOUNTER → 2025-10-01 14:19 | Outpatient (BNV) | payer MEDICAID, SELFPAY | PROVIDERS: PCP Internal Medicine; Visit Provider Radiology Diagnostic Radiology | DX: A15.9 Respiratory tuberculosis unspecified (principal) | CPT/HCPCS: 71046 ==